=== PATIENT | female | born 1940 | race Caucasian/White ===

== ENCOUNTER 2016-11-15 17:36 | Observation (INO) | payer OTHER, BC ==
[~2016-11-15] VITALS: Ht 160 cm; Wt 80.0 kg
[~2016-11-15 17:36] MED LIST: ADULT LOW DOSE81 MG PO; ASPIR-LOW81 MG PO; ASPIRIN81 M1 PO; CALCIUM; CALCIUM 1,2001 EACH PO; CALCIUM 600 +1 EA12 PO; CELEXA10 MG PO; CELEXA20 MG PO; CIPRO500 MG PO; CYANOCOBALAM1000 MCG PO; DIOVAN HCT 11 TABLET PO; DIOVAN80 MG PO; FLONASE16 G1 BOTH NARES; FLONASE16 GM NS; GLUCOSAMINE; IMIPRAMINE HCL10 MG PO; ISOSORBIDE DINI30 MG PO; K-DUR20 MEQ PO; LEXAPRO10 MG PO; LIPITOR40 MG PO; LOFIBRA,TRIGLI160 MG PO; LONOX PO; MECLIZINE HCL12.5 M1 PO; MODAFINIL200 MG PO; MYRBETRIQ50 MG PO; NEXIUM40 MG PO; NIACIN; NITROGLYCERIN0.4 MG SL; NITROQUICK0.4 MG PO; NORCO 5/3251 TABLET PO; PLAVIX75 MG PO; PRILOSEC40 MG PO; RANITIDINE HCL150 MG PO; SUSTENEX; SYMBICORT60 INHALAT IH; TOFRANIL10 MG PO; TOPROL XL50 MG PO; VYTORIN 10-401 EACH PO; ZYRTEC10 M2 PO; ZYRTEC10 M3 PO; ZYRTEC5 M1 PO
[2016-11-15 17:55] LABS: CREATININE 0.9 mg/dL (0.6-1.3)
[2016-11-15 17:56] LABS: BASOPHIL COUNT 0.1 K/uL (0-0.1); EOSINOPHIL (%) 4.3 % (0-5); EOSINOPHIL COUNT 0.3 K/uL (0-0.3); HEMATOCRIT 40.7 % (36.0-46.0); IMMATURE GRANULOCYTE (%) 0.4 % (0.0-0.7); IMMATURE GRANULOCYTE COUNT 0.3 K/uL; LYMPHOCYTE COUNT 1.8 K/uL (1.0-2.8); MCH 28.8 PG (29.0-34.0); MCHC 33.4 G/DL (30.0-36.0); MCV 86.2 FL (83-99); MEAN PLAT.VOLUME 9.6 uM^3 (9.5-12.4); MONOCYTE (%) 13.6 % (3-12); MONOCYTE COUNT 0.9 K/uL (0-0.8); NEUTROPHIL (%) 55.3 % (45-76); NEUTROPHIL COUNT 3.8 K/uL (1.8-6.4); PLATELET COUNT 272 K/uL (156-360); RBC DIS.WIDTH-CV 13.5 % (11.8-14.6); RBC DIS.WIDTH-SD 42.2 % (39-53); RED BLOOD COUNT 4.72 M/uL (3.80-5.20)
[2016-11-15 18:01] LABS: WHITE BLOOD COUNT 6.9 K/uL (4.1-10.2)
[2016-11-15 18:05] LABS: CHLORIDE 102 mEq/L (99-109); POTASSIUM 4.2 mEq/L (3.7-5.4); SODIUM 141 mEq/L (136-147)
[2016-11-15 18:07] LABS: GLUCOSE 111 mg/dL (70-99)
[2016-11-15 18:09] LABS: ANION GAP 12 MEQ/L (2-14); TOTAL BILIRUBIN 0.6 mg/dL (0.0-1.0)
[2016-11-15 18:11] LABS: ALKALINE PHOSPHATASE 72 IU/L (3-129); GFR ESTIMATE (CALCULATED) > 59 mL/min/
[2016-11-15 18:12] LABS: UREA NITROGEN (BUN) 20 mg/dL (9-23)
[2016-11-15 18:17] LABS: TROP-I INTERPRETATION NEGATIVE; TROPONIN-I < 0.01 ng/mL (0.0-0.30)
[2016-11-15] MEDS ORDERED: REFRESH EYE DR1 EACH LEFT EYE (18:36)
[2016-11-15] MEDS ORDERED: SYMBICORT60 INHALAT IH (18:36)
[2016-11-15] MEDS ORDERED: VITAMIN D35000 UNIT PO (18:37)
[2016-11-15] MEDS ORDERED: FLONASE16 G1 BOTH NARES (18:37)
[2016-11-15] MEDS ORDERED: PROVIGIL200 MG PO (18:37)
[2016-11-15] MEDS ORDERED: LIPITOR40 MG PO (18:37)
[2016-11-15] MEDS ORDERED: K-DUR20 MEQ PO (18:38)
[2016-11-15] MEDS ORDERED: CALCIUM PETITE1 EACH PO (18:38)
[2016-11-15] MEDS ORDERED: NITROSTAT0.4 MG SL (18:38)
[2016-11-15] MEDS ORDERED: ASPIR 8181 M1 PO (18:38)
[2016-11-15] MEDS ORDERED: B-121000 MC2 PO (18:39)
[2016-11-15] MEDS ORDERED: OMEPRAZOLE40 M1 PO (18:39)
[2016-11-15] MEDS ORDERED: LEXAPRO10 MG PO (18:39)
[2016-11-15] MEDS ORDERED: DIOVAN HCT 11 TABLET PO (18:39)
[2016-11-15] MEDS ORDERED: ZITHROMAX500 MG PO (18:40)
[2016-11-15] MEDS ORDERED: ANTIVERT12.5 MG PO (18:41)
[2016-11-15] MEDS ORDERED: ALEVE220 MG PO (18:41)
[2016-11-15] MEDS ORDERED: TOPROL XL50 MG PO (18:41)
[2016-11-15] MEDS ORDERED: ZYRTEC10 M3 PO (18:41)
[2016-11-15] MEDS ORDERED: ZITHROMAX250 MG PO (18:42)
[2016-11-15 22:00] VITALS: BP 115/67
[2016-11-15 23:44] LABS: TROP-I INTERPRETATION NEGATIVE; TROPONIN-I 0.02 ng/mL (0.0-0.30)
[2016-11-16 04:19] VITALS: BP 143/65
[2016-11-16 07:04] LABS: MCH 28.1 PG (29.0-34.0); MCHC 31.9 G/DL (30.0-36.0); MEAN PLAT.VOLUME 10.1 uM^3 (9.5-12.4); PLATELET COUNT 221 K/uL (156-360); RBC DIS.WIDTH-SD 44.9 % (39-53); RED BLOOD COUNT 4.09 M/uL (3.80-5.20); WHITE BLOOD COUNT 6.7 K/uL (4.1-10.2)
[2016-11-16 07:05] VITALS: BP 162/72
[2016-11-16 07:13] LABS: TROP-I INTERPRETATION NEGATIVE; TROPONIN-I 0.03 ng/mL (0.0-0.30)
[2016-11-16 07:34] LABS: ALKALINE PHOSPHATASE 58 IU/L (3-129); ANION GAP 8 MEQ/L (2-14); CHLORIDE 105 MEQ/L (99-109); GFR ESTIMATE (CALCULATED) > 59 mL/min/; GLUCOSE 107 mg/dL (70-99); SAMPLE HEMOLYSIS CHECK 0; SAMPLE ICTERIC CHECK 0; SAMPLE LIPEMIA CHECK 0; SODIUM 143 MEQ/L (136-147); TOTAL BILIRUBIN 0.6 MG/DL (0.0-1.0); UREA NITROGEN (BUN) 17 mg/dL (9-23)
[2016-11-16 07:37] LABS: POTASSIUM 3.3 MEQ/L (3.7-5.4)
== END 2016-11-16 13:35 | disposition home or self-care (01) ==
LOC: EME 17:36 → EDOF 20:16 → 4EAST 20:16
PROVIDERS: Emergency Medicine; Internal Medicine
DX: I44.1 Atrioventricular block, second degree (principal); R07.89 Other chest pain; R00.1 Bradycardia, unspecified; I25.10 Atherosclerotic heart disease of native coronary artery without angina pectoris; Z95.1 Presence of aortocoronary bypass graft; Z95.5 Presence of coronary angioplasty implant and graft; G47.33 Obstructive sleep apnea (adult) (pediatric); J44.9 Chronic obstructive pulmonary disease, unspecified; K21.9 Gastro-esophageal reflux disease without esophagitis; I10 Essential (primary) hypertension; F32.9 Major depressive disorder, single episode, unspecified; E78.00 Pure hypercholesterolemia, unspecified
CPT/HCPCS: 71010; 80047; 80053; 83605; 83880; 84484; 85025; 85027; 93005; 94640; 94660; 94799; 99202; 99281; 99285; G0378; J1644; J7030

== ENCOUNTER → 2017-02-07 | Outpatient (CLI) | payer OTHER, BC ==
[~2017-02-07] VITALS: Ht 162.6 cm; Wt 80.0 kg
[~2017-02-07] MED LIST changes: +ALEVE220 MG PO; +ANTIVERT12.5 MG PO; +ASPIR 8181 M1 PO; +B-121000 MC2 PO; +CALCIUM PETITE1 EACH PO; +CLEOCIN HCL75 MG PO; +NITROSTAT0.4 MG SL; +OMEPRAZOLE40 M1 PO; +PROVIGIL200 MG PO; +REFRESH EYE DR1 EACH LEFT EYE; +VITAMIN D35000 UNIT PO; +ZITHROMAX250 MG PO; +ZITHROMAX500 MG PO
== END | disposition home or self-care (01) ==
LOC: IVINF 01-29 10:00
DX: M85.80 Other specified disorders of bone density and structure, unspecified site (principal); Z88.5 Allergy status to narcotic agent; Z88.0 Allergy status to penicillin

== ENCOUNTER 2017-04-30 17:07 | Inpatient (IN) | payer OTHER, BC ==
[~2017-04-30] VITALS: Ht 160 cm; Wt 80.6 kg
[2017-04-30 17:58] LABS: HEMATOCRIT 39.5 % (36.0-46.0); MCH 29.1 PG (29.0-34.0); MCHC 33.2 G/DL (30.0-36.0); MCV 87.8 FL (83-99); MEAN PLAT.VOLUME 9.6 uM^3 (9.5-12.4); PLATELET COUNT 221 K/uL (156-360); RBC DIS.WIDTH-CV 13.8 % (11.8-14.6); RBC DIS.WIDTH-SD 44.4 % (39-53); WHITE BLOOD COUNT 8.1 K/uL (4.1-10.2)
[2017-04-30 18:05] LABS: CHLORIDE 103 mEq/L (99-109); POTASSIUM 3.3 mEq/L (3.7-5.4); SODIUM 141 mEq/L (136-147)
[2017-04-30 18:07] LABS: GLUCOSE 99 mg/dL (70-99)
[2017-04-30 18:08] LABS: ANION GAP 13 MEQ/L (2-14)
[2017-04-30 18:11] LABS: GFR ESTIMATE (CALCULATED) > 59 mL/min/; UREA NITROGEN (BUN) 17 mg/dL (9-23)
[2017-04-30 18:19] LABS: TROP-I INTERPRETATION NEGATIVE; TROPONIN-I 0.01 ng/mL (0.0-0.30)
[2017-04-30 19:40] LABS: MAGNESIUM 2.1 mg/dL (1.3-2.7)
[2017-04-30] MEDS ORDERED: MYRBETRIQ50 MG PO (20:40)
[2017-04-30 21:00] VITALS: BP 121/74
[2017-04-30 23:06] VITALS: BP 98/55
[2017-04-30] MEDS ORDERED: RANITIDINE HCL300 MG PO (23:30)
[2017-04-30] MEDS ORDERED: MOTRIN800 MG PO (23:31)
[2017-05-01] VITALS (10 sets, daily range): BP systolic 114–152; BP diastolic 65–94
[2017-05-01 01:23] LABS: TROP-I INTERPRETATION NEGATIVE; TROPONIN-I 0.06 ng/mL (0.0-0.30)
[2017-05-01 05:42] LABS: ANION GAP 8 MEQ/L (2-14); CHLORIDE 105 MEQ/L (99-109); GFR ESTIMATE (CALCULATED) > 59 mL/min/; GLUCOSE 102 mg/dL (70-99); POTASSIUM 3.6 MEQ/L (3.7-5.4); SAMPLE HEMOLYSIS CHECK 0; SAMPLE ICTERIC CHECK 0; SAMPLE LIPEMIA CHECK 0; SODIUM 143 MEQ/L (136-147); UREA NITROGEN (BUN) 18 mg/dL (9-23)
[2017-05-01 05:53] LABS: TROP-I INTERPRETATION NEGATIVE; TROPONIN-I 0.06 ng/mL (0.0-0.30)
[2017-05-01 17:16] LABS: METH RESISTANT S AUREUS PCR POSITIVE (NEGATIVE)
[2017-05-01 17:21] LABS: PROBE CHECK PASS
[2017-05-02 00:36] VITALS: BP 138/74
[2017-05-02 04:53] VITALS: BP 131/88
[2017-05-02 06:37] LABS: INTER. NORMALIZED RATIO 1.1; PROTHROMBIN TIME 11.9 SEC (10.2-12.9)
[2017-05-02 06:50] LABS: ANION GAP 11 MEQ/L (2-14); CHLORIDE 108 MEQ/L (99-109); GFR ESTIMATE (CALCULATED) > 59 mL/min/; GLUCOSE 114 mg/dL (70-99); POTASSIUM 3.9 MEQ/L (3.7-5.4); SAMPLE HEMOLYSIS CHECK 0; SAMPLE ICTERIC CHECK 0; SAMPLE LIPEMIA CHECK 0; SODIUM 144 MEQ/L (136-147); UREA NITROGEN (BUN) 20 mg/dL (9-23)
[2017-05-02 06:57] LABS: TROP-I INTERPRETATION NEGATIVE; TROPONIN-I 0.04 ng/mL (0.0-0.30)
[2017-05-02 08:49] VITALS: BP 138/88
[2017-05-02 17:17] VITALS: BP 162/77
[2017-05-02 19:46] VITALS: BP 138/77
[2017-05-03 00:38] VITALS: BP 146/74
[2017-05-03 04:39] VITALS: BP 164/96
[2017-05-03 08:19] VITALS: BP 142/87
[2017-05-03] MEDS ORDERED: XARELTO20 MG PO (11:17)
[2017-05-03] MEDS ORDERED: LOPRESSOR50 MG PO (11:17)
[2017-05-03] MEDS ORDERED: DIOVAN HCT 11 TABLET PO (13:15)
== END 2017-05-03 14:14 | disposition home or self-care (01) | DRG 243 ==
LOC: EME 17:07 → 4EAST 19:28 → EDOF 19:28 → ENRESERV 19:30 → EDOF 19:55 → 4EAST 20:33
PROVIDERS: Emergency Medicine; Internal Medicine Cardiovascular Disease; Physician Assistant Medical
DX: I49.5 Sick sinus syndrome (principal); I48.0 Paroxysmal atrial fibrillation; I44.1 Atrioventricular block, second degree; I10 Essential (primary) hypertension; I25.118 Atherosclerotic heart disease of native coronary artery with other forms of angina pectoris; I27.2 Other secondary pulmonary hypertension; I25.2 Old myocardial infarction; G47.33 Obstructive sleep apnea (adult) (pediatric); E78.5 Hyperlipidemia, unspecified; K21.9 Gastro-esophageal reflux disease without esophagitis; Z95.1 Presence of aortocoronary bypass graft; I48.92 Unspecified atrial flutter; E66.9 Obesity, unspecified; Z68.31 Body mass index [BMI] 31.0-31.9, adult; F32.9 Major depressive disorder, single episode, unspecified
CPT/HCPCS: 71010; 80048; 80048 91; 80061; 83735; 84450; 84460; 84484; 85027; 85610; 85730; 86038; 86235; 86430; 87081; 87641; 93005; 94640; 94640 76; 94660; 99281; 99285; C1785; C1892; C1894; C1898; J1200; J2250; J3010; J3370; S0020

== ENCOUNTER 2017-06-15 03:20 | Inpatient (IN) | payer OTHER, BC ==
[~2017-06-15] VITALS: Ht 160 cm; Wt 78.6 kg
[~2017-06-15 03:20] MED LIST changes: +LOPRESSOR50 MG PO; +MOTRIN800 MG PO; +RANITIDINE HCL300 MG PO; +XARELTO20 MG PO
[2017-06-15 04:05] LABS: BASOPHIL COUNT 0.1 K/uL (0-0.1); EOSINOPHIL (%) 0.4 % (0-5); EOSINOPHIL COUNT 0.1 K/uL (0-0.3); HEMATOCRIT 41.1 % (36.0-46.0); IMMATURE GRANULOCYTE (%) 0.5 % (0.0-0.7); IMMATURE GRANULOCYTE COUNT 0.1 K/uL; INSTRUMENT ABS NEUTROPHIL CT 10.1 K/uL; LYMPHOCYTE COUNT 1.7 K/uL (1.0-2.8); MCH 28.5 PG (29.0-34.0); MCHC 31.6 G/DL (30.0-36.0); MCV 90.1 FL (83-99); MONOCYTE (%) 9.1 % (3-12); MONOCYTE COUNT 1.2 K/uL (0-0.8); NEUTROPHIL (%) 76.6 % (45-76); NEUTROPHIL COUNT 10.1 K/uL (1.8-6.4); PLATELET COUNT 253 K/uL (156-360); RBC DIS.WIDTH-CV 14.2 % (11.8-14.6); RBC DIS.WIDTH-SD 47.2 % (39-53); RED BLOOD COUNT 4.56 M/uL (3.80-5.20); WHITE BLOOD COUNT 13.1 K/uL (4.1-10.2)
[2017-06-15 04:09] LABS: CHLORIDE 104 mEq/L (99-109); POTASSIUM 3.7 mEq/L (3.7-5.4); SODIUM 139 mEq/L (136-147)
[2017-06-15 04:11] LABS: GLUCOSE 136 mg/dL (70-99)
[2017-06-15 04:12] LABS: ANION GAP 9 MEQ/L (2-14)
[2017-06-15 04:13] LABS: TOTAL BILIRUBIN 1.5 mg/dL (0.0-1.0)
[2017-06-15 04:15] LABS: ALKALINE PHOSPHATASE 87 IU/L (3-129); GFR ESTIMATE (CALCULATED) > 59 mL/min/
[2017-06-15 04:16] LABS: UREA NITROGEN (BUN) 17 mg/dL (9-23)
[2017-06-15 04:48] LABS: INFLUENZA A VIRAL ANTIGEN NEGATIVE; INFLUENZA B VIRAL ANTIGEN NEGATIVE
[2017-06-15] MEDS ORDERED: PRILOSEC20 MG PO (05:54)
[2017-06-15] MEDS ORDERED: VITAMIN B122500 MC1 PO (05:56)
[2017-06-15] MEDS ORDERED: VITAMIN D5000 UNI1 PO (05:57)
[2017-06-15] MEDS ORDERED: OMEPRAZOLE40 M1 PO (08:24)
[2017-06-15 08:45] VITALS: BP 172/79
[2017-06-15 10:59] VITALS: BP 143/70
[2017-06-15 12:25] VITALS: BP 133/63
[2017-06-15 15:59] VITALS: BP 131/65
[2017-06-15 19:22] VITALS: BP 114/58
[2017-06-15 23:48] VITALS: BP 126/70
[2017-06-16 03:42] VITALS: BP 120/65
[2017-06-16 07:17] LABS: HEMATOCRIT 37.9 % (36.0-46.0); MCH 28.1 PG (29.0-34.0); MCHC 31.1 G/DL (30.0-36.0); MCV 90.2 FL (83-99); PLATELET COUNT 224 K/uL (156-360); RBC DIS.WIDTH-CV 14.3 % (11.8-14.6); RBC DIS.WIDTH-SD 47.2 % (39-53); WHITE BLOOD COUNT 9.7 K/uL (4.1-10.2)
[2017-06-16 07:20] VITALS: BP 146/66
[2017-06-16 07:29] LABS: ANION GAP 7 MEQ/L (2-14); CHLORIDE 107 MEQ/L (99-109); GFR ESTIMATE (CALCULATED) > 59 mL/min/; GLUCOSE 107 mg/dL (70-99); SAMPLE HEMOLYSIS CHECK 0; SAMPLE ICTERIC CHECK 0; SAMPLE LIPEMIA CHECK 0; SODIUM 142 MEQ/L (136-147); UREA NITROGEN (BUN) 22 mg/dL (9-23)
[2017-06-16 11:30] VITALS: BP 146/70
[2017-06-16 16:10] VITALS: BP 130/75
[2017-06-16 19:11] VITALS: BP 128/60
[2017-06-16 23:32] VITALS: BP 148/68
[2017-06-17 03:20] VITALS: BP 130/72
[2017-06-17 07:45] VITALS: BP 133/63
[2017-06-17] MEDS ORDERED: LEVOFLOXACIN750 MG PO (11:09)
[2017-06-17] MEDS ORDERED: PREDNISONE10 MG PO (11:12)
[2017-06-17] MEDS ORDERED: ALBUTEROL2.5 MG/3 M IH (11:12)
[2017-06-17] MEDS ORDERED: PROAIR HFA8.5 GM IH (13:00)
== END 2017-06-17 14:13 | disposition home or self-care (01) | DRG 194 ==
LOC: EME 03:20 → EDOF 06:05 → ENRESERV 06:07 → 2EAST 08:30
PROVIDERS: Emergency Medicine; Internal Medicine
PROC: 5A09357 Assistance with Respiratory Ventilation, Less than 24 Consecutive Hours, Continuous Positive Airway Pressure (ICD-10-PCS; principal; 2017-06-15)
DX: J15.9 Unspecified bacterial pneumonia (principal); J45.31 Mild persistent asthma with (acute) exacerbation; J98.11 Atelectasis; J90 Pleural effusion, not elsewhere classified; R09.02 Hypoxemia; G47.33 Obstructive sleep apnea (adult) (pediatric); J20.9 Acute bronchitis, unspecified; I27.21 Secondary pulmonary arterial hypertension; I48.2 Chronic atrial fibrillation; E78.2 Mixed hyperlipidemia; I10 Essential (primary) hypertension; I25.10 Atherosclerotic heart disease of native coronary artery without angina pectoris; K21.9 Gastro-esophageal reflux disease without esophagitis; K44.9 Diaphragmatic hernia without obstruction or gangrene; Z95.5 Presence of coronary angioplasty implant and graft; Z95.0 Presence of cardiac pacemaker; Z95.1 Presence of aortocoronary bypass graft; Z79.01 Long term (current) use of anticoagulants; Z79.51 Long term (current) use of inhaled steroids; Z87.01 Personal history of pneumonia (recurrent); Z88.0 Allergy status to penicillin; Z88.5 Allergy status to narcotic agent; Z79.82 Long term (current) use of aspirin
CPT/HCPCS: 71020; 71250; 80048; 80053; 81003; 83605; 83880; 85025; 85027; 87040; 87502; 90686; 93005; 94640; 94640 76; 94660; 94760; 94799; 99202; 99281; 99285; J0692; J1956; J7030; J7050; J7512

== ENCOUNTER 2017-11-20 14:03 | Emergency (ER) | payer OTHER, BC ==
[~2017-11-20] VITALS: Ht 160 cm; Wt 78.7 kg
[~2017-11-20 14:03] MED LIST changes: +ALBUTEROL2.5 MG/3 M IH; +LEVOFLOXACIN750 MG PO; +PREDNISONE10 MG PO; +PRILOSEC20 MG PO; +PROAIR HFA8.5 GM IH; +VITAMIN B122500 MC1 PO; +VITAMIN D5000 UNI1 PO
[2017-11-20 15:25] LABS: HEMATOCRIT 41.6 % (36.0-46.0); HEMOGLOBIN 13.3 G/DL (11.9-15.5); MCH 26.1 PG (29.0-34.0); MCV 81.7 FL (83-99); PLATELET COUNT 217 K/uL (156-360); RBC DIS.WIDTH-CV 16.7 % (11.8-14.6); RBC DIS.WIDTH-SD 49.5 % (39-53); RED BLOOD COUNT 5.09 M/uL (3.80-5.20)
[2017-11-20 15:33] LABS: CHLORIDE 108 mEq/L (99-109); INTER. NORMALIZED RATIO 1.4; POTASSIUM 4.1 mEq/L (3.7-5.4); SODIUM 143 mEq/L (136-147)
[2017-11-20 15:35] LABS: GLUCOSE 83 mg/dL (70-99); PTT 32.5 SEC (25-37)
[2017-11-20 15:38] LABS: CREATININE 0.8 mg/dL (0.6-1.3); GFR ESTIMATE (CALCULATED) > 59 mL/min/
[2017-11-20 15:40] LABS: UREA NITROGEN (BUN) 14 mg/dL (9-23)
[2017-11-20 15:45] LABS: TROP-I INTERPRETATION NEGATIVE; TROPONIN-I < 0.01 ng/mL (0.0-0.30)
[2017-11-20 16:46] VITALS: BP 175/85
== END 2017-11-20 16:48 | disposition home or self-care (01) ==
LOC: EME 14:03
PROVIDERS: Physician Assistant
DX: R20.0 Anesthesia of skin (principal); R51 Headache; I10 Essential (primary) hypertension; K21.9 Gastro-esophageal reflux disease without esophagitis; F32.9 Major depressive disorder, single episode, unspecified; Z95.1 Presence of aortocoronary bypass graft; Z88.5 Allergy status to narcotic agent
CPT/HCPCS: 70450; 80048; 84484; 85027; 85610; 85730; 93005; 99281; 99284

== ENCOUNTER → 2018-03-06 | Outpatient (CLI) | payer OTHER, BC ==
[~2018-03-06] VITALS: Ht 162.6 cm; Wt 79.0 kg
[~2018-03-06] MED LIST changes: +DIMENHYDRINATE50 MG PO; +SPIRONOLACTONE25 MG PO; +XOPENEX HF200 INHALA IH
[2018-03-06 10:30] VITALS: BP 106/57
== END | disposition home or self-care (01) ==
LOC: IVINF 02-21 10:00
DX: M85.80 Other specified disorders of bone density and structure, unspecified site (principal)
CPT/HCPCS: 96365; J3489

== ENCOUNTER 2018-03-27 08:44 | Observation (INO) | payer OTHER, BC ==
[~2018-03-27] VITALS: Ht 162.6 cm; Wt 80.3 kg
[2018-03-27 09:12] LABS: HEMOGLOBIN 12.2 G/DL (11.9-15.5); MCH 28.6 PG (29.0-34.0); MCV 86.9 FL (83-99); PLATELET COUNT 246 K/uL (156-360); RBC DIS.WIDTH-CV 15.1 % (11.8-14.6); RBC DIS.WIDTH-SD 47.8 % (39-53); RED BLOOD COUNT 4.26 M/uL (3.80-5.20); WHITE BLOOD COUNT 6.3 K/uL (4.1-10.2)
[2018-03-27 09:18] LABS: INTER. NORMALIZED RATIO 1.6
[2018-03-27 09:21] LABS: CHLORIDE 108 mEq/L (99-109); POTASSIUM 4.3 mEq/L (3.7-5.4); SODIUM 141 mEq/L (136-147)
[2018-03-27 09:22] LABS: GLUCOSE 86 mg/dL (70-99)
[2018-03-27 09:26] LABS: CREATININE 0.9 mg/dL (0.6-1.3); GFR ESTIMATE (CALCULATED) > 59 mL/min/
[2018-03-27 09:27] LABS: UREA NITROGEN (BUN) 17 mg/dL (9-23)
[2018-03-27 09:33] LABS: TROP-I INTERPRETATION NEGATIVE; TROPONIN-I < 0.01 ng/mL (0.0-0.30)
[2018-03-27] MEDS ORDERED: CALCIUM + D3 E1 EACH PO (10:22)
[2018-03-27] MEDS ORDERED: TYLENOL ARTHRI650 MG PO (10:26)
[2018-03-27] MEDS ORDERED: MYCOSTATIN 100,60 ML PO (10:26)
[2018-03-27] MEDS ORDERED: NITROSTAT0.3 MG SL (10:27)
[2018-03-27] MEDS ORDERED: ANTIVERT12.5 MG PO (10:27)
[2018-03-27 12:36] VITALS: BP 181/85
[2018-03-27 15:23] LABS: TROP-I INTERPRETATION NEGATIVE; TROPONIN-I < 0.01 ng/mL (0.0-0.30)
[2018-03-27 15:41] VITALS: BP 179/84
[2018-03-27 19:00] VITALS: BP 143/68
[2018-03-27 21:53] LABS: TROP-I INTERPRETATION NEGATIVE; TROPONIN-I 0.01 ng/mL (0.0-0.30)
[2018-03-27 23:43] VITALS: BP 144/73
[2018-03-28 03:48] VITALS: BP 138/662
[2018-03-28 07:53] VITALS: BP 140/67
== END 2018-03-28 09:57 | disposition home or self-care (01) ==
LOC: EME 08:44 → EDOF 11:03 → ENRESERV 11:07 → 4SOUTH 12:31
PROVIDERS: Nurse Practitioner Family; Physician Assistant
DX: R07.9 Chest pain, unspecified (principal); I10 Essential (primary) hypertension; G47.33 Obstructive sleep apnea (adult) (pediatric); I25.10 Atherosclerotic heart disease of native coronary artery without angina pectoris; Z95.1 Presence of aortocoronary bypass graft; Z95.5 Presence of coronary angioplasty implant and graft; K44.9 Diaphragmatic hernia without obstruction or gangrene; K21.9 Gastro-esophageal reflux disease without esophagitis; I44.1 Atrioventricular block, second degree; Z95.0 Presence of cardiac pacemaker; I27.20 Pulmonary hypertension, unspecified; J44.9 Chronic obstructive pulmonary disease, unspecified; E78.5 Hyperlipidemia, unspecified; Z82.49 Family history of ischemic heart disease and other diseases of the circulatory system; Z90.710 Acquired absence of both cervix and uterus; Z88.5 Allergy status to narcotic agent; Z88.0 Allergy status to penicillin
CPT/HCPCS: 71046; 80048; 84484; 85027; 85610; 85730; 93005; 94640; 94799; 99281; 99285; G0378